=== PATIENT | male | born 1950 | race Caucasian/White ===

== ENCOUNTER 2017-09-15 19:09 | Emergency (ER) | payer MEDICARE, MEDICAID ==
[~2017-09-15] VITALS: Ht 188 cm; Wt 95.0 kg
[~2017-09-15 19:09] MED LIST: ACLI400A2 INH; ALBU8.5H5 INH; ASPI-621 PO; DILT120C9 PO; FAMO-79 PO; FLUT1DIS3 INH; FOLI-17 PO; MAGN400T26 PO; MULT-750 PO; NICO-487 TD; THIA100T6 PO; TRAM-47 PO
[2017-09-15 21:56] VITALS: BP 112/70
== END 2017-09-16 03:41 | disposition home or self-care (01) ==
LOC: ED 20:16
DX: K40.90 Unilateral inguinal hernia, without obstruction or gangrene, not specified as recurrent (principal); F10.220 Alcohol dependence with intoxication, uncomplicated; J44.9 Chronic obstructive pulmonary disease, unspecified; I48.91 Unspecified atrial fibrillation; C34.90 Malignant neoplasm of unspecified part of unspecified bronchus or lung
CPT/HCPCS: 99283

== ENCOUNTER 2019-02-07 12:09 | Inpatient (IN) | payer MEDICARE, MEDICAID ==
[~2019-02-07] VITALS: Ht 177.8 cm; Wt 82.2 kg
[~2019-02-07 12:09] MED LIST changes: -ASPI-621 PO; +ASPI81TA45 PO; -THIA100T6 PO; +THIA100T67 PO
[2019-02-07] MEDS ORDERED: DILTIAZEM 125 MG in SODIUM CHLORIDE 0.9% 100 ML IV SCH (12:39)
[2019-02-07] MEDS ORDERED: AMITRIPTYLINE (12:42)
--- NOTE | 2019-02-07 12:43 | NUR ---
PT BIB [facility] FOR ETOH. [facility] ON RECORD ST CALLED EMS BECAUSE PT WAS STUMBLING AROUND, CONCERNED THAT PT FELL AND HIT HEAD. NO TRAUMA VISIBLE, NO HX BLOOD THINNERS. PT STATES HE DRANK A PINT OF VODKA THIS AM. VSS EXCEPT HR AFIB 130S-150S. PER EMS STAFF HR WAS AFIB 160S-170S ON SCENE. 1 L NS GIVEN AND PIV ESTABLISHED, UNKNOWN HX OF AFIB PER PT. PT DRESSED IN GOWN, COOPERATIVE WITH STAFF BUT LETHARGIC. ROOM AIR. FALL PRECAUTIONS IN PLACE.
[2019-02-07] MEDS ORDERED: DILTIAZEM 5 MG/ML, 5ML ONE (12:49)
[2019-02-07] MEDS ORDERED: THIAMINE 100 MG in SODIUM CHLORIDE 0.9% 50 ML IVPB ONE (13:00)
[2019-02-07] MEDS ORDERED: SODIUM CHLORIDE FLUSH 10ML SYR IVF ONE (13:00)
[2019-02-07] MEDS ORDERED: DILTIAZEM 5 MG/ML, 5ML IV ONE (13:00)
[2019-02-07 13:12] LABS: BASOPHILS # (AUTO) 0.06 x10^3/uL (0-0.1); BASOPHILS % (AUTO) 1 % (0-1); EOSINOPHILS # (AUTO) 0.13 x10^3/uL (0-0.4); EOSINOPHILS % (AUTO) 1 % (1-7); LYMPHOCYTES % (AUTO) 20 % (22-44); MD NO; MEAN CORPUSCULAR HEMOGLOBIN 31.2 pg (27.5-34.5); MEAN CORPUSCULAR HGB CONC 32.9 g/dL (33.2-36.2); MEAN CORPUSCULAR VOLUME 94.9 fL (81-97); MEAN PLATELET VOLUME 7.8 fL (7.4-10.4); MONOCYTES # (AUTO) 0.94 x10^3/uL (0.2-0.8); MONOCYTES % (AUTO) 10 % (2-9); NEUTROPHILS # (AUTO) 6.35 x10^3/uL (1.8-6.8); NEUTROPHILS % (AUTO) 68 % (42-75); PLATELET COUNT 238 x10^3/uL (130-400); RED BLOOD COUNT 4.84 x10^6/uL (4.38-5.82); RED CELL DISTRIBUTION WIDTH 14.7 % (9.4-14.8)
--- NOTE | 2019-02-07 13:13 | NUR ---
CARDIZEM BOLUS COMPLETED, CARDIZEM GTT INFUSING PER MD ORDER. VSS, EXCEPT HR 110S-140S.
--- NOTE | 2019-02-07 13:14 | NUR ---
received report from Emmanuel. pt upright on gurney awake & calm, responds to staff questions, NAD, no needs at this time, call light within reach.
[2019-02-07 13:19] LABS: ALANINE AMINOTRANSFERASE 22 U/L (12-78); ALBUMIN 3.3 g/dL (3.4-5.0); ANION GAP 9 mmol/L (5-15); CALCIUM 7.7 mg/dL (8.5-10.1); CHLORIDE 114 mmol/L (98-107); CREATININE 0.62 mg/dL (0.7-1.3)
[2019-02-07 13:23] LABS: ALKALINE PHOSPHATASE 62 U/L (45-117); BILIRUBIN,TOTAL 0.4 mg/dL (0.2-1.0); TOTAL PROTEIN 6.5 g/dL (6.4-8.2); TROPONIN I < 0.015 ng/mL (0.000-0.045)
[2019-02-07 13:26] LABS: PROTHROMBIN TIME 10.5 Seconds (9.6-11.5)
--- NOTE | 2019-02-07 14:01 | NUR ---
pt laying on gurney with eyes closed, NAD with equal chest rise/fall, no needs at this time, pt remains in safe environment, sitter in view.
--- NOTE | 2019-02-07 14:56 | NUR ---
pt continues laying on gurney with eyes closed, NAD with equal chest rise/fall, no needs at this time, pt remains in safe environment, sitter in view.
[2019-02-07] MEDS ORDERED: SODIUM CHLORIDE FLUSH 10ML SYR IVF PRN (15:00)
--- NOTE | 2019-02-07 15:04 | NUR ---
Manohar toussaint in [facility] - 02/07/19 at 1505 by CHIQUI pt laying on gurney with eyes closed, NAD with equal chest rise/fall, no needs at this time, call light within reach.
--- NOTE | 2019-02-07 15:43 | NUR ---
Pt to be admitted to card-tele, room 504. Report called to Martina.
[2019-02-07] MEDS ORDERED: HEPARIN 5,000 UNITS/ML, 1ML SQ SCH (16:00)
[2019-02-07] MEDS ORDERED: LABETALOL 5MG/ML, 20ML IVPush PRN (16:00)
[2019-02-07] MEDS ORDERED: ONDANSETRON 2MG/ML, 2ML IVPush PRN (16:00)
[2019-02-07 16:43] VITALS: BP 120/81
[2019-02-07] MEDS ORDERED: ALBUTEROL/IPRATROPIUM 2.5MG/0.5MG, 3 ML ONE (17:03)
[2019-02-07] MEDS: ALBUTEROL/IPRATROPIUM 2.5MG/0.5MG, 3 ML NPPB SCH ×2 (17:10→20:53)
[2019-02-07 17:24] LABS: TROPONIN I < 0.015 ng/mL (0.000-0.045)
[2019-02-07] MEDS: DILTIAZEM 125 MG in SODIUM CHLORIDE 0.9% 100 ML IV SCH ×2 (18:00→23:43)
[2019-02-07] MEDS: LORazepam 2 MG/ML, 1ML IVPush PRN (18:16)
[2019-02-07] MEDS: SODIUM CHLORIDE 0.9% 1,000 ML IV SCH (18:25)
[2019-02-07] MEDS ORDERED: MAGNESIUM SULFATE PMX 2GM/50ML 50 ML IV ONE (18:30)
[2019-02-07 19:48] VITALS: BP 122/75
[2019-02-07] MEDS: BUDESONIDE 0.5 MG/2 ML INHA INH SCH (20:53)
[2019-02-07] MEDS: ENOXAPARIN 80 MG/0.8 ML SQ SCH (21:27)
[2019-02-07] MEDS: NICOTINE 21 MG/24 HR PATCH.TD24 TD SCH (21:27)
[2019-02-07 22:53] LABS: TROPONIN I < 0.015 ng/mL (0.000-0.045)
[2019-02-08] MEDS ORDERED: NITROGLYCERIN 0.4 MG/SPRAY SL PRN (02:00)
[2019-02-08] MEDS ORDERED: NITROGLYCERIN 0.4 MG BOTTLE (25 TABS) SL PRN (02:00)
[2019-02-08 02:13] VITALS: BP 106/67
[2019-02-08 05:30] VITALS: BP 122/64
[2019-02-08 05:32] LABS: ALANINE AMINOTRANSFERASE 22 U/L (12-78); ANION GAP 8 mmol/L (5-15); CALCIUM 7.7 mg/dL (8.5-10.1); CHLORIDE 107 mmol/L (98-107); CREATININE 0.58 mg/dL (0.7-1.3)
[2019-02-08 05:34] LABS: MEAN CORPUSCULAR HEMOGLOBIN 32.2 pg (27.5-34.5); MEAN CORPUSCULAR HGB CONC 33.6 g/dL (33.2-36.2); MEAN CORPUSCULAR VOLUME 95.6 fL (81-97); PLATELET COUNT 203 x10^3/uL (130-400); RED BLOOD COUNT 4.14 x10^6/uL (4.38-5.82); RED CELL DISTRIBUTION WIDTH 14.5 % (9.4-14.8)
[2019-02-08 05:41] VITALS: BP 99/62
[2019-02-08 05:43] LABS: ALKALINE PHOSPHATASE 59 U/L (45-117); TOTAL PROTEIN 5.9 g/dL (6.4-8.2)
[2019-02-08 05:46] LABS: THYROID STIMULATING HORMONE < 0.005 mIU/L (0.358-3.740)
[2019-02-08] MEDS: ACETAMINOPHEN 325 MG TABLET PO PRN ×2 (05:54→21:29)
[2019-02-08 05:56] LABS: BASOPHILS # (AUTO) 0.05 x10^3/uL (0-0.1); BASOPHILS % (AUTO) 0 % (0-1); EOSINOPHILS # (AUTO) 0.05 x10^3/uL (0-0.4); EOSINOPHILS % (AUTO) 0 % (1-7); LYMPHOCYTES # (AUTO) 1.29 x10^3/uL (1-3.4); LYMPHOCYTES % (AUTO) 11 % (22-44); MD NO; MONOCYTES # (AUTO) 1.29 x10^3/uL (0.2-0.8); MONOCYTES % (AUTO) 11 % (2-9); NEUTROPHILS # (AUTO) 8.92 x10^3/uL (1.8-6.8); NEUTROPHILS % (AUTO) 77 % (42-75)
[2019-02-08] MEDS: SODIUM CHLORIDE 0.9% 1,000 ML IV SCH ×2 (05:56→16:00)
[2019-02-08 06:50] VITALS: BP 121/68
[2019-02-08] MEDS: BUDESONIDE 0.5 MG/2 ML INHA INH SCH ×2 (06:56→19:00)
[2019-02-08] MEDS: ALBUTEROL/IPRATROPIUM 2.5MG/0.5MG, 3 ML NPPB SCH ×4 (06:56→19:00)
[2019-02-08] MEDS: DILTIAZEM 125 MG in SODIUM CHLORIDE 0.9% 100 ML IV SCH ×3 (07:05→18:03)
[2019-02-08] MEDS ORDERED: DILT120C11 PO (09:47)
[2019-02-08] MEDS ORDERED: TIOT4MIS5 PO (09:47)
[2019-02-08] MEDS ORDERED: BUDE10.2 PO (09:47)
[2019-02-08] MEDS ORDERED: ALBU18HF PO (09:47)
[2019-02-08] MEDS ORDERED: METH750T2 PO (09:47)
[2019-02-08] MEDS ORDERED: PRED20TA PO (09:47)
[2019-02-08] MEDS ORDERED: ASPI-650 PO (09:47)
[2019-02-08] MEDS: THIAMINE 100MG TABLET PO SCH (10:06)
[2019-02-08] MEDS: FOLIC ACID 1 MG TABLET PO SCH (10:06)
[2019-02-08] MEDS: ENOXAPARIN 80 MG/0.8 ML SQ SCH ×2 (10:07→21:17)
[2019-02-08 10:41] LABS: FREE T4 (FREE THYROXINE) 1.2 ng/dL (0.76-1.46)
[2019-02-08 12:55] VITALS: BP 107/61
[2019-02-08] MEDS ORDERED: POTASSIUM CHLORIDE 20 MEQ TAB.ER.PRT PO ONE (16:00)
[2019-02-08] MEDS: METOPROLOL TARTRATE 25 MG TABLET PO SCH (18:01)
[2019-02-08] MEDS: GUAIFENESIN 200 MG TABLET PO SCH ×2 (18:01→21:17)
[2019-02-08 20:52] VITALS: BP 112/68
[2019-02-08] MEDS: DOXYCYCLINE 100MG TABLET PO SCH (21:17)
[2019-02-08] MEDS: NICOTINE 21 MG/24 HR PATCH.TD24 TD SCH (21:17)
[2019-02-09 02:30] VITALS: BP 127/75
[2019-02-09] MEDS: DILTIAZEM 125 MG in SODIUM CHLORIDE 0.9% 100 ML IV SCH (04:18)
[2019-02-09 04:52] LABS: BASOPHILS # (AUTO) 0.02 x10^3/uL (0-0.1); BASOPHILS % (AUTO) 0 % (0-1); EOSINOPHILS # (AUTO) 0.15 x10^3/uL (0-0.4); EOSINOPHILS % (AUTO) 2 % (1-7); LYMPHOCYTES # (AUTO) 1.99 x10^3/uL (1-3.4); LYMPHOCYTES % (AUTO) 23 % (22-44); MD NO; MEAN CORPUSCULAR HEMOGLOBIN 31.9 pg (27.5-34.5); MEAN CORPUSCULAR HGB CONC 33.1 g/dL (33.2-36.2); MEAN CORPUSCULAR VOLUME 96.3 fL (81-97); MEAN PLATELET VOLUME 8.6 fL (7.4-10.4); MONOCYTES # (AUTO) 0.98 x10^3/uL (0.2-0.8); MONOCYTES % (AUTO) 11 % (2-9); NEUTROPHILS # (AUTO) 5.48 x10^3/uL (1.8-6.8); NEUTROPHILS % (AUTO) 64 % (42-75); PLATELET COUNT 194 x10^3/uL (130-400); RED BLOOD COUNT 4.33 x10^6/uL (4.38-5.82); RED CELL DISTRIBUTION WIDTH 14.9 % (9.4-14.8)
[2019-02-09 04:58] LABS: ANION GAP 7 mmol/L (5-15); CALCIUM 8.3 mg/dL (8.5-10.1); CHLORIDE 111 mmol/L (98-107)
[2019-02-09 04:59] LABS: CREATININE 0.52 mg/dL (0.7-1.3)
[2019-02-09] MEDS: METOPROLOL TARTRATE 25 MG TABLET PO SCH ×2 (05:53→17:28)
[2019-02-09] MEDS: GUAIFENESIN 200 MG TABLET PO SCH (05:53)
[2019-02-09 05:54] VITALS: BP 146/85
[2019-02-09 07:01] VITALS: BP 130/77
[2019-02-09] MEDS: ALBUTEROL/IPRATROPIUM 2.5MG/0.5MG, 3 ML NPPB SCH ×4 (07:45→20:00)
[2019-02-09] MEDS: BUDESONIDE 0.5 MG/2 ML INHA INH SCH ×2 (07:45→20:07)
[2019-02-09] MEDS: DOXYCYCLINE 100MG TABLET PO SCH ×2 (09:29→21:33)
[2019-02-09] MEDS: FOLIC ACID 1 MG TABLET PO SCH (09:29)
[2019-02-09] MEDS: THIAMINE 100MG TABLET PO SCH (09:30)
[2019-02-09] MEDS: ENOXAPARIN 80 MG/0.8 ML SQ SCH ×2 (09:30→21:33)
[2019-02-09] MEDS ORDERED: NEUTRA PHOS K 250 MG TABLET PO SCH (10:30)
[2019-02-09] MEDS: MAGNESIUM OXIDE 400 MG TABLET PO SCH (11:13)
[2019-02-09] MEDS: DILTIAZEM 60 MG TABLET PO SCH ×3 (11:13→21:33)
[2019-02-09] MEDS: GUAIFENESIN ER 600 MG TABLET PO SCH ×2 (11:19→21:32)
[2019-02-09 13:02] VITALS: BP 107/66
[2019-02-09 19:00] VITALS: BP 126/75
[2019-02-09] MEDS: NICOTINE 21 MG/24 HR PATCH.TD24 TD SCH (21:34)
[2019-02-10 00:34] VITALS: BP 107/62
[2019-02-10 04:59] LABS: MEAN CORPUSCULAR HEMOGLOBIN 32.1 pg (27.5-34.5); MEAN CORPUSCULAR HGB CONC 32.9 g/dL (33.2-36.2); MEAN CORPUSCULAR VOLUME 97.5 fL (81-97); MEAN PLATELET VOLUME 8.6 fL (7.4-10.4); PLATELET COUNT 199 x10^3/uL (130-400); RED BLOOD COUNT 4.59 x10^6/uL (4.38-5.82); RED CELL DISTRIBUTION WIDTH 14.6 % (9.4-14.8)
[2019-02-10 05:05] LABS: ANION GAP 8 mmol/L (5-15); CALCIUM 8.6 mg/dL (8.5-10.1); CHLORIDE 108 mmol/L (98-107); CREATININE 0.46 mg/dL (0.7-1.3)
[2019-02-10 05:42] LABS: BASOPHILS # (AUTO) 0.01 x10^3/uL (0-0.1); BASOPHILS % (AUTO) 0 % (0-1); EOSINOPHILS % (AUTO) 0 % (1-7); LYMPHOCYTES # (AUTO) 0.75 x10^3/uL (1-3.4); LYMPHOCYTES % (AUTO) 7 % (22-44); MD SCAN; MONOCYTES # (AUTO) 0.36 x10^3/uL (0.2-0.8); MONOCYTES % (AUTO) 3 % (2-9); NEUTROPHILS # (AUTO) 9.76 x10^3/uL (1.8-6.8); NEUTROPHILS % (AUTO) 90 % (42-75)
[2019-02-10 06:12] VITALS: BP 132/75
[2019-02-10] MEDS: DILTIAZEM 60 MG TABLET PO SCH ×4 (06:12→20:04)
[2019-02-10] MEDS: METOPROLOL TARTRATE 25 MG TABLET PO SCH ×2 (06:13→20:03)
[2019-02-10] MEDS: ALBUTEROL/IPRATROPIUM 2.5MG/0.5MG, 3 ML NPPB SCH ×4 (07:00→18:24)
[2019-02-10 08:35] VITALS: BP 113/70
[2019-02-10] MEDS: FOLIC ACID 1 MG TABLET PO SCH (08:41)
[2019-02-10] MEDS: MAGNESIUM OXIDE 400 MG TABLET PO SCH (08:41)
[2019-02-10] MEDS: GUAIFENESIN ER 600 MG TABLET PO SCH ×2 (08:41→20:03)
[2019-02-10] MEDS: THIAMINE 100MG TABLET PO SCH (08:41)
[2019-02-10] MEDS: ENOXAPARIN 80 MG/0.8 ML SQ SCH ×2 (08:41→20:05)
[2019-02-10] MEDS: DOXYCYCLINE 100MG TABLET PO SCH ×2 (08:41→20:04)
[2019-02-10] MEDS: LORazepam 2 MG/ML, 1ML IVPush PRN ×2 (08:58→20:10)
[2019-02-10] MEDS: BUDESONIDE 0.5 MG/2 ML INHA INH SCH ×2 (09:00→18:24)
[2019-02-10] MEDS: methylPREDNISolone SOD SUCC 125 MG/2 ML IVPush SCH ×2 (12:40→20:03)
[2019-02-10 16:03] VITALS: BP 130/82
[2019-02-10] MEDS: PANTOPRAZOLE 20MG TABLET PO SCH (17:34)
[2019-02-10 18:43] VITALS: BP 120/79
[2019-02-10] MEDS: NICOTINE 21 MG/24 HR PATCH.TD24 TD SCH (20:05)
[2019-02-11 00:21] VITALS: BP 123/75
[2019-02-11] MEDS: methylPREDNISolone SOD SUCC 125 MG/2 ML IVPush SCH (05:27)
[2019-02-11] MEDS: METOPROLOL TARTRATE 25 MG TABLET PO SCH ×2 (05:28→17:33)
[2019-02-11] MEDS: DILTIAZEM 60 MG TABLET PO SCH ×4 (05:28→20:48)
[2019-02-11] MEDS: PANTOPRAZOLE 20MG TABLET PO SCH (05:28)
[2019-02-11 06:29] VITALS: BP 120/72
[2019-02-11] MEDS: ALBUTEROL/IPRATROPIUM 2.5MG/0.5MG, 3 ML NPPB SCH ×4 (06:56→19:59)
[2019-02-11] MEDS: DOXYCYCLINE 100MG TABLET PO SCH ×2 (08:18→20:48)
[2019-02-11] MEDS: FOLIC ACID 1 MG TABLET PO SCH (08:18)
[2019-02-11] MEDS: MAGNESIUM OXIDE 400 MG TABLET PO SCH (08:18)
[2019-02-11] MEDS: GUAIFENESIN ER 600 MG TABLET PO SCH ×2 (08:18→20:48)
[2019-02-11] MEDS: THIAMINE 100MG TABLET PO SCH (08:18)
[2019-02-11] MEDS: ENOXAPARIN 80 MG/0.8 ML SQ SCH ×2 (08:19→20:49)
[2019-02-11] MEDS: BUDESONIDE 0.5 MG/2 ML INHA INH SCH ×2 (09:00→19:59)
[2019-02-11 11:09] VITALS: BP 125/78
[2019-02-11 13:06] VITALS: BP 117/69
[2019-02-11] MEDS ORDERED: AMIT10TA PO (14:03)
[2019-02-11] MEDS: GABAPENTIN 100 MG CAPSULE PO PRN ×2 (14:19→22:32)
[2019-02-11 17:29] VITALS: BP 122/65
[2019-02-11 19:24] VITALS: BP 111/72
[2019-02-11] MEDS: ACETAMINOPHEN 325 MG TABLET PO PRN (20:49)
[2019-02-11] MEDS: NICOTINE 21 MG/24 HR PATCH.TD24 TD SCH (20:56)
[2019-02-11] MEDS: LORazepam 2 MG/ML, 1ML IVPush PRN (23:49)
[2019-02-12 02:30] VITALS: BP 130/72
[2019-02-12] MEDS: ACETAMINOPHEN 325 MG TABLET PO PRN (06:00)
[2019-02-12] MEDS: METOPROLOL TARTRATE 25 MG TABLET PO SCH (06:01)
[2019-02-12] MEDS: DILTIAZEM 60 MG TABLET PO SCH (06:02)
[2019-02-12] MEDS: PANTOPRAZOLE 20MG TABLET PO SCH (06:02)
[2019-02-12] MEDS: BUDESONIDE 0.5 MG/2 ML INHA INH SCH (07:25)
[2019-02-12] MEDS: ALBUTEROL/IPRATROPIUM 2.5MG/0.5MG, 3 ML NPPB SCH (07:25)
[2019-02-12] MEDS: DOXYCYCLINE 100MG TABLET PO SCH (07:55)
[2019-02-12] MEDS: FOLIC ACID 1 MG TABLET PO SCH (07:55)
[2019-02-12] MEDS: GUAIFENESIN ER 600 MG TABLET PO SCH (07:55)
[2019-02-12] MEDS: THIAMINE 100MG TABLET PO SCH (07:55)
[2019-02-12] MEDS: MAGNESIUM OXIDE 400 MG TABLET PO SCH (07:55)
[2019-02-12 07:57] VITALS: BP 122/75
[2019-02-12] MEDS ORDERED: PHOS250T3 PO (09:00)
[2019-02-12] MEDS ORDERED: MAGN400T50 PO (09:00)
[2019-02-12] MEDS ORDERED: METH4TAB2 PO (09:00)
[2019-02-12] MEDS ORDERED: ALBU18HF PO (09:00)
[2019-02-12] MEDS ORDERED: THIA100T67 PO (09:00)
[2019-02-12] MEDS ORDERED: DILT120C11 PO (09:00)
[2019-02-12] MEDS ORDERED: FOLI-17 PO (09:00)
[2019-02-12] MEDS ORDERED: BUDE10.2 PO (09:00)
[2019-02-12] MEDS ORDERED: METO25TA35 PO (09:00)
[2019-02-12] MEDS ORDERED: TIOT4MIS5 PO (09:00)
[2019-02-12] MEDS ORDERED: NICO-487 TD (09:04)
[2019-02-12] MEDS ORDERED: NICO-486 TD (09:04)
[2019-02-12] MEDS ORDERED: NICO-485 TD (09:04)
[2019-02-12] MEDS: ENOXAPARIN 80 MG/0.8 ML SQ SCH (09:30)
== END 2019-02-12 11:17 | disposition home or self-care (01) | DRG 308 ==
LOC: ED 14:31 → EDIP 14:32 → ED 15:25 → 5SO 15:57
PROVIDERS: ADMIT Hospitalist; ATTEND Hospitalist
DX: I48.2 Chronic atrial fibrillation (principal); I50.31 Acute diastolic (congestive) heart failure; J44.1 Chronic obstructive pulmonary disease with (acute) exacerbation; S22.42XA Multiple fractures of ribs, left side, initial encounter for closed fracture; E44.0 Moderate protein-calorie malnutrition; D68.59 Other primary thrombophilia; F10.220 Alcohol dependence with intoxication, uncomplicated; F17.200 Nicotine dependence, unspecified, uncomplicated; Z66 Do not resuscitate; D64.9 Anemia, unspecified; D72.829 Elevated white blood cell count, unspecified; E66.3 Overweight; E83.39 Other disorders of phosphorus metabolism; E83.42 Hypomagnesemia; E87.6 Hypokalemia; F41.9 Anxiety disorder, unspecified; G89.29 Other chronic pain; M54.9 Dorsalgia, unspecified; I44.4 Left anterior fascicular block; Z91.19 Patient's noncompliance with other medical treatment and regimen; Z85.118 Personal history of other malignant neoplasm of bronchus and lung; Z91.81 History of falling; Z68.26 Body mass index [BMI] 26.0-26.9, adult
CPT/HCPCS: 36415; 71045; 80048; 80053; 80307; 83735; 83880; 84100; 84439; 84443; 84481; 84484; 85025; 85610; 85730; 93005; 93306; 94640; 96374; 96375; G0378; J1650; J3411; J7620; J7626; J2060; J2930; J3475; J7030; J7512

== ENCOUNTER 2019-07-09 12:08 | Inpatient (IN) | payer MEDICARE, MEDICAID ==
[~2019-07-09] VITALS: Ht 182.9 cm; Wt 83.2 kg
[~2019-07-09 12:08] MED LIST changes: -ACLI400A2 INH; +ACLI400A3 INH; +ALBU18HF PO; +AMIT10TA PO; +AMITRIPTYLINE; +ASPI-650 PO; +BUDE10.2 PO; +DILT120C11 PO; +DILT120C48 PO; -DILT120C9 PO; +MAGN400T50 PO; +METH4TAB2 PO; +METH750T2 PO; +METO25TA35 PO; +NICO-485 TD; +NICO-486 TD; +PHOS250T3 PO; +PRED20TA PO; +TIOT4MIS5 PO
--- NOTE | 2019-07-09 12:45 | NUR ---
BIB EMS, DR ALTAMIRANO REC'D RPT FROM EMS. PT CARE ASSUMED BY THIS RN. PT WITH OVERWHELMING ODOR OF URINE, CLOTHES APPEAR SOAKED IN URINE ANDPT ONLY HAS A T-SHIRT AND UNDERSHORTS ON. CLOTHES REMOVED AND SKIN CLEANED HOSPITAL GOWN PLACED, PT ROSARIO WITH PURPOSE BUT DFOES NOT FOLLOW COMMANDS +ETOH ODOR. RECTAL TEMP 95.0, SLY BLANKET WARMING INITIATED AND WARM BLANKETS. ALL MONITORS PLACED, VSS. DR ALTAMIRANO UPDATED REGARDING ASSESSMENT.
[2019-07-09] MEDS ORDERED: SODIUM CHLORIDE 0.9% 1,000 ML IV ONE (12:54)
[2019-07-09 13:16] LABS: BASOPHILS # (AUTO) 0.04 x10^3/uL (0-0.1); BASOPHILS % (AUTO) 1 % (0-1); EOSINOPHILS # (AUTO) 0.26 x10^3/uL (0-0.4); EOSINOPHILS % (AUTO) 4 % (1-7); LYMPHOCYTES # (AUTO) 2.41 x10^3/uL (1-3.4); LYMPHOCYTES % (AUTO) 41 % (22-44); MD NO; MEAN CORPUSCULAR HEMOGLOBIN 31.9 pg (27.5-34.5); MEAN CORPUSCULAR HGB CONC 32.6 g/dL (33.2-36.2); MEAN CORPUSCULAR VOLUME 97.8 fL (81-97); MEAN PLATELET VOLUME 7.8 fL (7.4-10.4); MONOCYTES # (AUTO) 0.48 x10^3/uL (0.2-0.8); MONOCYTES % (AUTO) 8 % (2-9); NEUTROPHILS # (AUTO) 2.69 x10^3/uL (1.8-6.8); NEUTROPHILS % (AUTO) 46 % (42-75); PLATELET COUNT 238 x10^3/uL (130-400); RED BLOOD COUNT 5.66 x10^6/uL (4.38-5.82); RED CELL DISTRIBUTION WIDTH 15.4 % (9.4-14.8)
[2019-07-09 13:24] LABS: ALANINE AMINOTRANSFERASE 47 U/L (12-78); ALBUMIN 3.8 g/dL (3.4-5.0); ANION GAP 5 mmol/L (5-15); CALCIUM 8.7 mg/dL (8.5-10.1); CHLORIDE 114 mmol/L (98-107)
[2019-07-09 13:35] LABS: ALKALINE PHOSPHATASE 62 U/L (45-117); BILIRUBIN,TOTAL 0.2 mg/dL (0.2-1.0); CREATINE KINASE, TOTAL 58 U/L (39-308); TOTAL PROTEIN 8.6 g/dL (6.4-8.2)
--- NOTE | 2019-07-09 14:27 | NUR ---
rec report from maria de jesus salas
[2019-07-09] MEDS ORDERED: THIAMINE 200 MG in SODIUM CHLORIDE 0.9% 50 ML IV ONE (15:00)
[2019-07-09] MEDS ORDERED: DEXTROSE 5% 1,000 ML IV SCH (15:00)
[2019-07-09] MEDS: SODIUM CHLORIDE 0.9% 1,000 ML IV SCH (16:02)
[2019-07-09] MEDS ORDERED: DOCUSATE 100 MG CAPSULE PO PRN (16:30)
[2019-07-09] MEDS ORDERED: POLYETHYLENE GLYCOL 17 GM PACKET PO PRN (16:30)
--- NOTE | 2019-07-09 16:31 | NUR ---
report called to the floor
[2019-07-09 16:43] LABS: TROPONIN I < 0.015 ng/mL (0.000-0.045)
[2019-07-09 18:26] VITALS: BP 122/74
[2019-07-09] MEDS: NICOTINE 14MG/24 HR PATCH.TD24 TD SCH (18:45)
[2019-07-09 19:08] LABS: TROPONIN I < 0.015 ng/mL (0.000-0.045)
[2019-07-09 19:18] VITALS: BP 110/74
[2019-07-09] MEDS: POTASSIUM CHLORIDE 20 MEQ, MAGNESIUM SULFATE 1 GM, FOLIC ACID 1 MG, THIAMINE 200 MG, MV... IV SCH (19:38)
[2019-07-09 19:46] LABS: MICROSCOPIC NOT IND
[2019-07-09 19:48] LABS: CULTURE INDICATED? NO
[2019-07-09 19:57] LABS: AMPHETAMINE SCREEN, URINE Negative (Negative); BARBITURATE SCREEN, URINE Negative (Negative); BENZODIAZEPINE SCREEN, URINE Negative (Negative); CANNABINOID SCREEN, URINE Negative (Negative); COCAINE SCREEN, URINE Negative (Negative); METHADONE SCREEN, URINE Negative (Negative); OPIATE SCREEN, URINE Negative (Negative)
[2019-07-10] MEDS: ACETAMINOPHEN 325 MG TABLET PO PRN ×4 (00:50→21:00)
[2019-07-10] MEDS: LORazepam 2 MG/ML, 1ML IVPush PRN ×2 (00:51→05:04)
[2019-07-10 01:25] VITALS: BP 126/82
[2019-07-10 05:47] LABS: ALBUMIN 2.9 g/dL (3.4-5.0); ANION GAP 4 mmol/L (5-15); CALCIUM 7.7 mg/dL (8.5-10.1); CHLORIDE 108 mmol/L (98-107)
[2019-07-10 05:51] LABS: ALANINE AMINOTRANSFERASE 33 U/L (12-78); ALKALINE PHOSPHATASE 48 U/L (45-117); BILIRUBIN,TOTAL 0.7 mg/dL (0.2-1.0); CREATININE 0.61 mg/dL (0.7-1.3); TOTAL PROTEIN 6.4 g/dL (6.4-8.2)
[2019-07-10 06:14] LABS: BASOPHILS # (AUTO) 0.01 x10^3/uL (0-0.1); BASOPHILS % (AUTO) 0 % (0-1); EOSINOPHILS % (AUTO) 3 % (1-7); LYMPHOCYTES # (AUTO) 2.82 x10^3/uL (1-3.4); LYMPHOCYTES % (AUTO) 27 % (22-44); MD NO; MEAN CORPUSCULAR HEMOGLOBIN 31.8 pg (27.5-34.5); MEAN CORPUSCULAR HGB CONC 33.3 g/dL (33.2-36.2); MEAN CORPUSCULAR VOLUME 95.3 fL (81-97); MONOCYTES # (AUTO) 0.88 x10^3/uL (0.2-0.8); MONOCYTES % (AUTO) 9 % (2-9); NEUTROPHILS % (AUTO) 61 % (42-75); PLATELET COUNT 212 x10^3/uL (130-400); RED BLOOD COUNT 4.55 x10^6/uL (4.38-5.82)
[2019-07-10 07:02] VITALS: BP 145/91
[2019-07-10] MEDS: SODIUM CHLORIDE 0.9% 1,000 ML IV SCH (09:46)
[2019-07-10] MEDS ORDERED: LORazepam 2 MG/ML, 1ML IV PRN ×5 (10:30)
[2019-07-10] MEDS ORDERED: LORazepam 1MG TABLET PO PRN ×4 (10:30)
[2019-07-10] MEDS ORDERED: LORazepam 0.5MG TABLET PO PRN (10:30)
[2019-07-10 14:30] VITALS: BP 117/82
[2019-07-10] MEDS: NICOTINE 14MG/24 HR PATCH.TD24 TD SCH (16:45)
[2019-07-10] MEDS: POTASSIUM CHLORIDE 20 MEQ, MAGNESIUM SULFATE 1 GM, FOLIC ACID 1 MG, THIAMINE 200 MG, MV... IV SCH (18:20)
[2019-07-10 20:07] VITALS: BP 135/87
[2019-07-11 00:58] VITALS: BP 136/84
[2019-07-11 05:05] LABS: BASOPHILS # (AUTO) 0.02 x10^3/uL (0-0.1); BASOPHILS % (AUTO) 0 % (0-1); EOSINOPHILS # (AUTO) 0.37 x10^3/uL (0-0.4); EOSINOPHILS % (AUTO) 5 % (1-7); LYMPHOCYTES # (AUTO) 1.97 x10^3/uL (1-3.4); LYMPHOCYTES % (AUTO) 26 % (22-44); MD NO; MEAN CORPUSCULAR HEMOGLOBIN 31.9 pg (27.5-34.5); MEAN CORPUSCULAR HGB CONC 33.3 g/dL (33.2-36.2); MEAN CORPUSCULAR VOLUME 95.9 fL (81-97); MEAN PLATELET VOLUME 7.9 fL (7.4-10.4); MONOCYTES # (AUTO) 0.88 x10^3/uL (0.2-0.8); MONOCYTES % (AUTO) 12 % (2-9); NEUTROPHILS # (AUTO) 4.39 x10^3/uL (1.8-6.8); NEUTROPHILS % (AUTO) 58 % (42-75); PLATELET COUNT 195 x10^3/uL (130-400); RED BLOOD COUNT 4.56 x10^6/uL (4.38-5.82); RED CELL DISTRIBUTION WIDTH 14.6 % (9.4-14.8)
[2019-07-11 05:07] LABS: ANION GAP 7 mmol/L (5-15); CALCIUM 8.1 mg/dL (8.5-10.1); CHLORIDE 110 mmol/L (98-107); CREATININE 0.65 mg/dL (0.7-1.3)
[2019-07-11 05:17] LABS: FREE T4 (FREE THYROXINE) 0.88 ng/dL (0.76-1.46)
[2019-07-11 08:14] VITALS: BP 118/78
== END 2019-07-11 10:00 | disposition home or self-care (01) | DRG 896 ==
LOC: ED 15:53 → EDIP 15:58 → 5SO 17:35 → DCLOUNGE 07-11 09:43
PROVIDERS: ADMIT Internal Medicine; ATTEND Internal Medicine
DX: F10.229 Alcohol dependence with intoxication, unspecified (principal); G92 Toxic encephalopathy; R64 Cachexia; E87.0 Hyperosmolality and hypernatremia; E05.90 Thyrotoxicosis, unspecified without thyrotoxic crisis or storm; I48.0 Paroxysmal atrial fibrillation; J44.9 Chronic obstructive pulmonary disease, unspecified; R62.7 Adult failure to thrive; Z72.0 Tobacco use; Z85.118 Personal history of other malignant neoplasm of bronchus and lung; Z91.19 Patient's noncompliance with other medical treatment and regimen; R68.0 Hypothermia, not associated with low environmental temperature; Z79.82 Long term (current) use of aspirin; Z68.24 Body mass index [BMI] 24.0-24.9, adult
CPT/HCPCS: 36415; 70450; 71045; 80048; 80053; 80307; 81003; 82140; 82550; 83735; 84100; 84145; 84436; 84439; 84443; 84484; 85025; 93005; 99285; G0378; J3411; J3475; J3480; J7070; J2060; J7030

== ENCOUNTER 2019-07-11 19:56 | Emergency (ER) | payer MEDICARE, MEDICAID ==
[~2019-07-11] VITALS: Ht 172.7 cm; Wt 79.5 kg
[2019-07-11 20:26] LABS: BASOPHILS # (AUTO) 0.02 x10^3/uL (0-0.1); BASOPHILS % (AUTO) 0 % (0-1); EOSINOPHILS # (AUTO) 0.37 x10^3/uL (0-0.4); EOSINOPHILS % (AUTO) 5 % (1-7); LYMPHOCYTES % (AUTO) 35 % (22-44); MD NO; MEAN CORPUSCULAR HEMOGLOBIN 32.3 pg (27.5-34.5); MEAN CORPUSCULAR HGB CONC 33.2 g/dL (33.2-36.2); MEAN CORPUSCULAR VOLUME 97.1 fL (81-97); MEAN PLATELET VOLUME 7.7 fL (7.4-10.4); MONOCYTES # (AUTO) 0.65 x10^3/uL (0.2-0.8); MONOCYTES % (AUTO) 9 % (2-9); NEUTROPHILS # (AUTO) 3.66 x10^3/uL (1.8-6.8); NEUTROPHILS % (AUTO) 51 % (42-75); PLATELET COUNT 221 x10^3/uL (130-400); RED BLOOD COUNT 5.08 x10^6/uL (4.38-5.82); RED CELL DISTRIBUTION WIDTH 15.2 % (9.4-14.8)
--- NOTE | 2019-07-11 20:26 | NUR ---
BIB [facility] FOR ETOH. PT OPENS EYES, NO VERBAL RESPONSE. WAS SEEN HERE EARLIER TODAY. FRIEND CALLED [facility]. EMS STATES O2 WAS 80 RA BUT PT IS 93 RA HERE. PT ATTACHED TO ALL MONITORS. AXILLARY TEMP LOW, WET CLOTHES REMOVED AND WARMING MEASURES IN PLACE. CALL LIGHT WITHIN REACH. BED RAILS UPX2. URINAL AT BEDSIDE.
[2019-07-11 20:34] LABS: ALBUMIN 3.2 g/dL (3.4-5.0); ANION GAP 6 mmol/L (5-15); CALCIUM 8.2 mg/dL (8.5-10.1); CHLORIDE 116 mmol/L (98-107); SALICYLATE LEVEL 2.7 mg/dL (2.8-20.0)
[2019-07-11 22:27] VITALS: BP 105/67
--- NOTE | 2019-07-11 22:54 | NUR ---
pt asked for food. pt provided with a sandwich and water.
--- NOTE | 2019-07-12 02:09 | NUR ---
pt refusing to allow me to retake his temperature. pt states he wants to leave and doesnt know why he is here. pt refusing discharge paperwork. pt provided a new set of clothing becuase the ones he came in were urine soaked. pt provided a taxi cab voucher to the location of his choosing. pt ambulatory to the discharge desk with shuffled gait.
== END 2019-07-12 01:54 | disposition home or self-care (01) ==
LOC: ED 20:23
DX: G92 Toxic encephalopathy (principal); T68.XXXA Hypothermia, initial encounter; F10.20 Alcohol dependence, uncomplicated; Z72.9 Problem related to lifestyle, unspecified; I48.91 Unspecified atrial fibrillation; J44.9 Chronic obstructive pulmonary disease, unspecified; J45.909 Unspecified asthma, uncomplicated; F17.200 Nicotine dependence, unspecified, uncomplicated; Z85.118 Personal history of other malignant neoplasm of bronchus and lung
CPT/HCPCS: 36415; 80048; 80307; 82040; 82962; 85025; 99283

== ENCOUNTER 2019-07-12 14:09 | Emergency (ER) | payer MEDICARE, MEDICAID ==
[~2019-07-12] VITALS: Ht 172.7 cm; Wt 75.0 kg
--- NOTE | 2019-07-12 14:50 | NUR ---
AFTER CLARIFICATION WITH PROVIDER-PLAN TO CHECK ETOH LEVEL (SERUM) AND ALLOW PATIENT TO MTF. (CADE CHANGED TO 5) PLACED ON NIBP/POX. SIDE RAILS UP. PROVIDED WITH WARM BLANKET
--- NOTE | 2019-07-12 16:17 | NUR ---
ASSUMED CARE, RECEIVING REPORT FROM OSMAN. BREATHING EVEN AND UNLABORED, PT SLEEPING
--- NOTE | 2019-07-12 17:00 | NUR ---
CONTINUES TO SLEEP
[2019-07-12 18:00] VITALS: BP 116/78
--- NOTE | 2019-07-12 18:01 | NUR ---
PROVIDED DINNER TRAY
--- NOTE | 2019-07-12 18:59 | NUR ---
REPORT TO ROEL SUTTON
== END 2019-07-12 20:05 | disposition home or self-care (01) ==
LOC: ED 18:12
DX: F10.221 Alcohol dependence with intoxication delirium (principal); G92 Toxic encephalopathy; Z72.9 Problem related to lifestyle, unspecified; Y90.9 Presence of alcohol in blood, level not specified; I48.91 Unspecified atrial fibrillation; J44.9 Chronic obstructive pulmonary disease, unspecified; F17.200 Nicotine dependence, unspecified, uncomplicated; Z85.118 Personal history of other malignant neoplasm of bronchus and lung
CPT/HCPCS: 36415; 80307; 93005; 99284

== ENCOUNTER 2019-07-15 18:54 | Emergency (ER) | payer MEDICARE, MEDICAID ==
[~2019-07-15] VITALS: Ht 177.8 cm; Wt 80.0 kg
--- NOTE | 2019-07-15 19:06 | NUR ---
ASSESSMENT MADE. CHART UP FOR MD TO SEE. [facility]. DENIES TRAUMA / FALL.
--- NOTE | 2019-07-15 21:12 | NUR ---
patient sleeping. respiration unlabored. will continue to monitor.
--- NOTE | 2019-07-15 22:27 | NUR ---
no changes. patient sleeping, respiration unlabored. VSS
--- NOTE | 2019-07-16 01:17 | NUR ---
no changes. patient sleeping. VSS
--- NOTE | 2019-07-16 03:35 | NUR ---
patient been yelling states that he wanted to go home. ambulate with minimal assistance. alert and oriented. pants, shirt and cab voucher provided. wheeled to discharge area.
[2019-07-16 04:09] VITALS: BP 121/67
== END 2019-07-16 04:11 | disposition home or self-care (01) ==
LOC: ED 21:19
DX: F10.129 Alcohol abuse with intoxication, unspecified (principal); Z72.9 Problem related to lifestyle, unspecified; I48.91 Unspecified atrial fibrillation; J44.9 Chronic obstructive pulmonary disease, unspecified; Z85.118 Personal history of other malignant neoplasm of bronchus and lung; Y90.9 Presence of alcohol in blood, level not specified
CPT/HCPCS: 99283

== ENCOUNTER 2019-08-18 21:58 | Emergency (ER) | payer MEDICARE, MEDICAID ==
[~2019-08-18] VITALS: Ht 177.8 cm; Wt 80.0 kg
--- NOTE | 2019-08-19 04:06 | NUR ---
PT UP AND AMBULATING WITH HIS WALKER STATING THAT HE WANTS TO GO HOME, ADDRESS GIVEN [address] [place] [address], CAB VOUCHER GIVEN FOR SAFE DISCHARGE. PT STATES THAT HE IS SORRY THAT HE BECAME INTOXICATED AND ENDED UP IN THE ER.
[2019-08-19 04:09] VITALS: BP 148/80
== END 2019-08-19 04:11 | disposition home or self-care (01) ==
LOC: ED 22:20
DX: F10.229 Alcohol dependence with intoxication, unspecified (principal); J44.9 Chronic obstructive pulmonary disease, unspecified; I48.91 Unspecified atrial fibrillation
CPT/HCPCS: 70450; 72125; 99283; 99284

== ENCOUNTER 2019-08-19 06:11 | Emergency (ER) | payer MEDICARE, MEDICAID ==
[~2019-08-19] VITALS: Ht 175.3 cm; Wt 80.0 kg
[2019-08-19 06:12] VITALS: BP 138/91
--- NOTE | 2019-08-19 06:25 | NUR ---
69Y M BIB EMS FOUND AT BUS STATION AFTER [facility]. PT DENIES LOC, PT WAS SEEN HERE PREVIOUSLY FOR ETOH INTOX. PT CONNECTED TO MONITORS, VSS. NO FURTHER NEEDS EXPRESSED AT THIS TIME.
--- NOTE | 2019-08-19 06:55 | NUR ---
Received bedside report from HERMAN Knox. All questions answered. Assuming care of pt at this time. Pt resting on gurney connected to continous pulse ox monitor and on oxygen via NC. Bedrails up x 2 and call light within reach. No needs expressed at this time. No acute distress noted at this time.
--- NOTE | 2019-08-19 07:27 | NUR ---
Pt refusing to wear oxygen or pulse ox monitor. Pt continues to remove devices when assisted with replacing them. Pt has unlabored respirations with even chest rise and fall. Pt states, "are you going to get me a bottle of vodka?". Pt MTF at this time.
--- NOTE | 2019-08-19 07:46 | NUR ---
Provided pt urinal and water per request. Pt states he is unable to sit up on edge of bed. Ordered pt food tray from diet office. Bedrails up x 2. Call light within reach. Pt using call light appropriately. NADN. No needs expressed. Pt remains MTF.
--- NOTE | 2019-08-19 08:55 | NUR ---
LATE NOTE ENTRY FOR 0845: Pt provided meal tray.
--- NOTE | 2019-08-19 09:01 | NUR ---
Pt stating, "I can't sit up, just give me an hour." EDPA aware.
--- NOTE | 2019-08-19 09:04 | NUR ---
Lights turned on in room. Pt states, "It hasn't been an hour. What do you want me to do." Moved pt's food tray closer. Instructed pt that he will need to try getting up soon. Pt states, "Ok.".
--- NOTE | 2019-08-19 09:28 | NUR ---
Pt ambulates with steady gait and balance with personal walker and left with all personal belongings. Pt refusing to take d/c paperwork, pt states, "I don't want it." Pt states, "I need a cab....I have money...several hotels wouldn't take me and I have money...". Patient given discharge instructions and they have confirmed that they understand the instructions.
== END 2019-08-19 09:31 | disposition home or self-care (01) ==
LOC: ED 06:19
DX: F10.120 Alcohol abuse with intoxication, uncomplicated (principal); R51 Headache; M54.2 Cervicalgia; I48.91 Unspecified atrial fibrillation; J44.9 Chronic obstructive pulmonary disease, unspecified; F17.200 Nicotine dependence, unspecified, uncomplicated; Z86.19 Personal history of other infectious and parasitic diseases; W01.0XXA Fall on same level from slipping, tripping and stumbling without subsequent striking against object, initial encounter; Y93.89 Activity, other specified; Y92.9 Unspecified place or not applicable; Y99.8 Other external cause status
CPT/HCPCS: 70450; 72125; 99284

== ENCOUNTER 2019-09-20 12:17 | Emergency (ER) | payer MEDICAID, MEDICARE ==
[~2019-09-20] VITALS: Ht 172.7 cm; Wt 85.0 kg
--- NOTE | 2019-09-20 12:49 | NUR ---
REPORT FROM YOJANA SUTTON. PT RESTING IN BED CALL PALACIO IN REACH ASKING FOR FOOD. AWAITING MD. PRAJAPATI.
--- NOTE | 2019-09-20 13:25 | NUR ---
PT APPEARS TO BE SLEEPING. SIDE RAILS X2. VSS.
--- NOTE | 2019-09-20 15:01 | NUR ---
PT APPEARS TO BE SLEEPING VSS. NAD.
[2019-09-20 15:02] VITALS: BP 93/54
[2019-09-20] MEDS ORDERED: NEOSPORIN OINT. PKT 1 PACKET ONE (16:51)
== END 2019-09-20 16:23 | disposition left against medical advice (07) ==
LOC: ED 12:39
DX: F10.220 Alcohol dependence with intoxication, uncomplicated (principal); Y90.9 Presence of alcohol in blood, level not specified; I48.91 Unspecified atrial fibrillation; J44.9 Chronic obstructive pulmonary disease, unspecified
CPT/HCPCS: 99283

== ENCOUNTER 2019-09-24 02:27 | Emergency (ER) | payer MEDICARE ==
[~2019-09-24] VITALS: Ht 177.8 cm; Wt 77.0 kg
--- NOTE | 2019-09-24 02:47 | NUR ---
THIS IS A 69Y M BIB EMS FROM [facility] FOR ETOH AND INABILITY TO STAND. PT WAS AT [facility] AND FELL WHILE GETTING IN AND OUT OF HIS WALKER REPEATEDLY. PT ARRIVED AO X3. PT RESTING ON GURNEY SHOUTING AT NURSING STAFF THAT THEY ARE ALL GORGEOUS AND WONT WE TAKE A MIN TO LOVE HIM. PT EDUCATED ON APPROPRIATE BEHAVIOR. PT CONNECTED TO MONITORING ASTON PRAJAPATI
--- NOTE | 2019-09-24 02:49 | NUR ---
PT CONTINUES TO SHOUT AT STAFF DEMANDING FOOD, PT INFORMED THAT WE DO NOT SHOUT AT STAFF MEMBERS.
[2019-09-24 03:37] LABS: BASOPHILS # (AUTO) 0.02 x10^3/uL (0-0.1); BASOPHILS % (AUTO) 0 % (0-1); EOSINOPHILS % (AUTO) 0 % (1-7); LYMPHOCYTES # (AUTO) 1.57 x10^3/uL (1-3.4); LYMPHOCYTES % (AUTO) 17 % (22-44); MD NO; MEAN CORPUSCULAR HEMOGLOBIN 31.8 pg (27.5-34.5); MEAN CORPUSCULAR HGB CONC 33.4 g/dL (33.2-36.2); MEAN CORPUSCULAR VOLUME 95.3 fL (81-97); MEAN PLATELET VOLUME 8.4 fL (7.4-10.4); MONOCYTES # (AUTO) 0.98 x10^3/uL (0.2-0.8); MONOCYTES % (AUTO) 11 % (2-9); NEUTROPHILS # (AUTO) 6.58 x10^3/uL (1.8-6.8); NEUTROPHILS % (AUTO) 72 % (42-75); PLATELET COUNT 123 x10^3/uL (130-400); RED BLOOD COUNT 4.81 x10^6/uL (4.38-5.82); RED CELL DISTRIBUTION WIDTH 14.4 % (9.4-14.8)
--- NOTE | 2019-09-24 03:40 | NUR ---
PA AT BEDSIDE TO ASSESS PT
[2019-09-24 03:48] LABS: ALANINE AMINOTRANSFERASE 51 U/L (12-78); ALBUMIN 3.3 g/dL (3.4-5.0); ANION GAP 12 mmol/L (5-15); CHLORIDE 103 mmol/L (98-107)
[2019-09-24 03:53] LABS: ALKALINE PHOSPHATASE 59 U/L (45-117); BILIRUBIN,TOTAL 0.5 mg/dL (0.2-1.0); TOTAL PROTEIN 7.2 g/dL (6.4-8.2)
--- NOTE | 2019-09-24 04:15 | NUR ---
PT SHOUTING AT STAFF REQUESTING SLICES OF CHEESE AT THIS TIME, PT INFORMED WE HAVE NO CHEESE. PT BECAME AGGITATED. PT ASKS TO SLEEP HERE WHEN PT PROVIDED WITH BLANKETS PT RESPONDS WITH THATS ALL, I DIDN'T MEAN LITERALLY SLEEP JUST RUB TOES WITH YOU. PT INFORMED INAPPROPRIATE COMMENTS.
--- NOTE | 2019-09-24 04:32 | NUR ---
REPORT RECEIVED FROM HERMAN GREEN. PT RESTING ON GURNEY WITH EYES CLOSED, MONITORING IN [place], CALL LIGHT WITHIN REACH.
[2019-09-24] MEDS ORDERED: POTASSIUM CHLORIDE 20 MEQ TAB.ER.PRT PO ONE (05:00)
[2019-09-24] MEDS ORDERED: POTASSIUM CHLORIDE 20 MEQ TAB.ER.PRT ONE (06:15)
[2019-09-24 06:24] VITALS: BP 131/65
--- NOTE | 2019-09-24 07:09 | NUR ---
sitting up on edge of bed getting dressed. assisted with belt. pt ambulated to discharge window with use of walker, steady gait. [facility]
== END 2019-09-24 07:12 | disposition home or self-care (01) ==
LOC: ED 04:44
DX: F10.220 Alcohol dependence with intoxication, uncomplicated (principal); E87.6 Hypokalemia; Y90.9 Presence of alcohol in blood, level not specified
CPT/HCPCS: 36415; 80053; 80307; 85025; 99283

== ENCOUNTER 2019-09-24 09:32 | Emergency (ER) | payer MEDICARE ==
[~2019-09-24] VITALS: Ht 167.6 cm; Wt 75.0 kg
--- NOTE | 2019-09-24 10:05 | NUR ---
PT ARRIVED BY AMBULANCE WITH A PERSON HE JUST MET IN PARKING LOT OF MEN'S ASSISTED. PT HAD BEEN PROVIDED A VOUCHER FOR SAME FROM THIS ER THIS MORNING. PT HAD BEEN IN ER THROUGH NIGHT BECAUSE HE WAS INTOXICATED AND KICKED OUT OF ASSISTED. PERSON AT BEDSIDE OF PT WHO IS LOUD AND INEBRIATED ACTING. PERSON TALKING PT INTO STAYING IN BED. WILL CONTINUE TO MONITOR
[2019-09-24 10:57] LABS: ANION GAP 9 mmol/L (5-15); CALCIUM 8.1 mg/dL (8.5-10.1); CHLORIDE 106 mmol/L (98-107)
[2019-09-24 10:58] LABS: ALANINE AMINOTRANSFERASE 57 U/L (12-78); ALBUMIN 3.4 g/dL (3.4-5.0)
[2019-09-24 11:00] LABS: ALKALINE PHOSPHATASE 63 U/L (45-117); BILIRUBIN,TOTAL 0.4 mg/dL (0.2-1.0); TOTAL PROTEIN 7.4 g/dL (6.4-8.2)
--- NOTE | 2019-09-24 11:30 | NUR ---
BELIGERENT BUT STAYING IN BED WITH VISTOR AT BEDSIDE.
[2019-09-24 12:13] VITALS: BP 119/82
--- NOTE | 2019-09-24 14:01 | NUR ---
PT AWAKE AND EATING SANDWICH
--- NOTE | 2019-09-24 14:42 | NUR ---
PT ABLE TO WALK WITH USE OF WALKER. DISCHARGED TO [facility] CALLED FOR PT.
== END 2019-09-24 14:44 | disposition home or self-care (01) ==
LOC: ED 09:51
DX: F10.220 Alcohol dependence with intoxication, uncomplicated (principal); I48.91 Unspecified atrial fibrillation; J44.9 Chronic obstructive pulmonary disease, unspecified; F17.200 Nicotine dependence, unspecified, uncomplicated; Y90.9 Presence of alcohol in blood, level not specified
CPT/HCPCS: 36415; 80053; 99283

== ENCOUNTER 2019-10-04 12:19 | Emergency (ER) | payer MEDICARE ==
[~2019-10-04] VITALS: Ht 180.3 cm; Wt 78.0 kg
--- NOTE | 2019-10-04 12:24 | NUR ---
PATIENT ARRIVES WITH MOR FROM [facility]. HE IS SLURRING BADLY, SMELLS OF ETOH. NURSING HOME STATES THEY FOUND TWO BOTTLES WHISKY ON PATIENT. PATIENT ON MONITOR. ORIENTED TO PERSON
--- NOTE | 2019-10-04 12:41 | NUR ---
BREAK RN: SBAR RPT REC'D FROM HERMAN MORLEY. AWAITING ED PROVIDER COLIN. PT ON CARDIAC, BP, SP02 MONITORS. VSS WITH 02 2L NC.
--- NOTE | 2019-10-04 13:26 | NUR ---
CALM AND IN BED. ORDERED DIET TRAY
--- NOTE | 2019-10-04 13:31 | NUR ---
PATIENT METATBOLIZE TO FREEDOM.
--- NOTE | 2019-10-04 15:19 | NUR ---
PATIENT IN BED, HE IS ORIENTED TO SELF AND PLACE TO "HOSPITAL" BUT NOT WHICH ONE. HE IS DISORIENTED TO DATE, SITUATION. IN BED RAILS UP CALM
--- NOTE | 2019-10-04 15:30 | NUR ---
TASK RN: PT ARROUSES TO VERBAL STIM. VERBALIZES NEED TO URINATE. URINAL PLACED. PT VOIDED W/O DIFFICULTY. HOB UP 90DEGREES AND MEAL PROVIDED.
--- NOTE | 2019-10-04 15:58 | NUR ---
PATIENT ATE MOST OF SANDWICH THEN BACK TO SLEEP. WHEN HE FALLS ASLEEP HE DESATS INTO 80'S SO MORE OXYGEN NEEDED - 4 LITERS. WAKES EASILY AND TRYING TO PUT TOGETHER HOW HE GOT HERE, ETC. WAKING UP SOME.
--- NOTE | 2019-10-04 17:21 | NUR ---
patient takes off oxygen frequently and then desat's oxygen. not compliant with oxygen, replaced oxygen x4.
--- NOTE | 2019-10-04 18:07 | NUR ---
SLEEPINGN SOUNDLY. NO S/S DISTRESS. ON MONITOR RAILS UP
--- NOTE | 2019-10-04 18:49 | NUR ---
REPORT RECEIVED FROM HERMAN MORLEY. PLAN OF CARE DISCUSSED.
--- NOTE | 2019-10-04 19:38 | NUR ---
PATIENT AMBULATORY WITH OWN WALKER, VSS ON RA. A&OX4. PATIENT GIVEN TAXI VOUCHER AND CONFIRMS UNDERSTANDING OF DISCHARGE INSTRUCTIONS.
[2019-10-04 19:39] VITALS: BP 125/67
== END 2019-10-04 19:41 | disposition home or self-care (01) ==
LOC: ED 12:39
DX: F10.129 Alcohol abuse with intoxication, unspecified (principal); Y90.9 Presence of alcohol in blood, level not specified; I48.91 Unspecified atrial fibrillation; J44.9 Chronic obstructive pulmonary disease, unspecified
CPT/HCPCS: 71045; 99283

== ENCOUNTER 2019-10-05 23:18 | Emergency (ER) | payer MEDICARE, MEDICAID ==
[~2019-10-05] VITALS: Ht 180.3 cm; Wt 84.9 kg
--- NOTE | 2019-10-05 23:24 | NUR ---
Pt appears grossly intoxicated and unable to ambulate, found on ground and is homeless per report. Reports drinking "a lot of alcohol." Slurring speech, but neuro otherwise intact. Monitoring applied. Vss. WCTM.
--- NOTE | 2019-10-06 01:14 | NUR ---
Pt sleeping comfortably on gurney. Nadn. Rr even and unlabored.
--- NOTE | 2019-10-06 02:31 | NUR ---
Pt sleeping comfortably on gurney. Nadn. Rr even and unlabored.
--- NOTE | 2019-10-06 02:53 | NUR ---
Pt sleeping comfortably on gurney. Nadn. Rr even and unlabored.
[2019-10-06 02:59] VITALS: BP 128/76
== END 2019-10-06 04:49 | disposition home or self-care (01) ==
LOC: ED 10-06 04:30
DX: F10.220 Alcohol dependence with intoxication, uncomplicated (principal); Y90.9 Presence of alcohol in blood, level not specified; J44.9 Chronic obstructive pulmonary disease, unspecified
CPT/HCPCS: 99283

== ENCOUNTER 2019-10-31 08:17 | Emergency (ER) | payer MEDICARE, MEDICAID ==
[~2019-10-31] VITALS: Ht 180.3 cm; Wt 80.0 kg
--- NOTE | 2019-10-31 08:30 | NUR ---
THIS IS A 69 YO MALE BIB [facility] FOR ACUTE ETOH INTOXICATION, PATIENT WAS FOUND BY [facility] UNABLE TO AMBULATE. PATIENT ALERT, ORIENTED TO SELF, KNOWS , UNAWARE OF LOCATION OR EVENTS LEADING TO COMING TO ER. PERRLA, MOVES ALL EXTREMITIES WELL, UNABLE TO ASSESS WALKING AT THIS TIME, PATIENT DROWSY. ALL MONITORING IN PLACE, NSR ON MONITOR. VSS, NAD, CALL LIGHT IN REACH.
--- NOTE | 2019-10-31 09:33 | NUR ---
PATIENT SLEEPING, RESPIRATIONS EVEN AND UNLABORED. VSS. ALL MONITORING IN PLACE
[2019-10-31] MEDS ORDERED: ACETAMINOPHEN 500 MG TABLET ONE (10:01)
--- NOTE | 2019-10-31 10:30 | NUR ---
PATIENT SLEEPING, RESPIRATIONS EVEN AND UNLABORED. VSS. ALL MONITORING IN PLACE
--- NOTE | 2019-10-31 11:33 | NUR ---
ATTEMPTED TO WAKE PATIENT, PATIENT AROUSES TO VERBAL STIMULI, SPEECH SLURRED, A&OX2. VSS. ALL MONITORING IN PLACE. PATIENT BACK TO SLEEP
[2019-10-31 12:18] VITALS: BP 110/74
--- NOTE | 2019-10-31 12:24 | NUR ---
PATIENT ASKING FOR WATER, SPEECH IS MODERATELY MORE CLEAR, GIVEN WATER, REFUSES TO ATTEMPT TO WALK AT THIS TIME
--- NOTE | 2019-10-31 13:47 | NUR ---
PATIENT AMBULATORY WITH STEADY GAIT TO DISCHARGE. VERBALIZED D/C INSTRUCTIONS AND COMMUNICATED UNDERSTANDING. VSS, NAD, PROVIDED WITH TAXI VOUCHER
== END 2019-10-31 13:50 | disposition home or self-care (01) ==
LOC: ED 08:53
DX: F10.220 Alcohol dependence with intoxication, uncomplicated (principal); J44.9 Chronic obstructive pulmonary disease, unspecified; Z85.118 Personal history of other malignant neoplasm of bronchus and lung; Y90.9 Presence of alcohol in blood, level not specified
CPT/HCPCS: 99285

== ENCOUNTER 2019-11-06 14:43 | Emergency (ER) | payer MEDICARE, MEDICAID ==
[~2019-11-06] VITALS: Ht 177.8 cm; Wt 75.0 kg
[2019-11-06] MEDS ORDERED: CEFAZOLIN 1,000 MG IM ONE (15:00)
--- NOTE | 2019-11-06 15:00 | NUR ---
PT LANA AFTER ASKING PASSERBY TO CALL 911 FOR HIM. PT IS POOR HISTORIAN AND SAYS HE DOESN'T KNOW WHY HE IS HERE. +ETOH. PER EMS, PT WAS SITTING AGAINST A BUILDING WITH MULTIPLE DC PAPERS FROM VARIOUS RECENT VISITS AT [facility]. PT CONNECTED TO ALL MONITORS. VSS. EDMD SAHM TO BS FOR ASSESSMENT. ORDERS RECEIVED.
[2019-11-06] MEDS ORDERED: CEFAZOLIN 1,000 MG ONE (15:06)
--- NOTE | 2019-11-06 15:14 | NUR ---
PT MEDICATED PER MAR.
[2019-11-06 15:15] LABS: BASOPHILS # (AUTO) 0.04 x10^3/uL (0-0.1); BASOPHILS % (AUTO) 1 % (0-1); EOSINOPHILS # (AUTO) 0.06 x10^3/uL (0-0.4); EOSINOPHILS % (AUTO) 1 % (1-7); LYMPHOCYTES % (AUTO) 23 % (22-44); MD NO; MEAN CORPUSCULAR HEMOGLOBIN 31.9 pg (27.5-34.5); MEAN CORPUSCULAR HGB CONC 33.4 g/dL (33.2-36.2); MEAN CORPUSCULAR VOLUME 95.6 fL (81-97); MEAN PLATELET VOLUME 7.4 fL (7.4-10.4); MONOCYTES # (AUTO) 0.65 x10^3/uL (0.2-0.8); MONOCYTES % (AUTO) 8 % (2-9); NEUTROPHILS # (AUTO) 5.47 x10^3/uL (1.8-6.8); NEUTROPHILS % (AUTO) 68 % (42-75); PLATELET COUNT 234 x10^3/uL (130-400); RED BLOOD COUNT 4.75 x10^6/uL (4.38-5.82); RED CELL DISTRIBUTION WIDTH 14.6 % (9.4-14.8)
[2019-11-06 15:26] LABS: ALANINE AMINOTRANSFERASE 30 U/L (12-78); ANION GAP 7 mmol/L (5-15); CALCIUM 8.2 mg/dL (8.5-10.1); CHLORIDE 109 mmol/L (98-107); CREATININE 0.52 mg/dL (0.7-1.3)
[2019-11-06 15:28] LABS: ALKALINE PHOSPHATASE 57 U/L (45-117); BILIRUBIN,TOTAL 0.1 mg/dL (0.2-1.0); TOTAL PROTEIN 6.9 g/dL (6.4-8.2)
[2019-11-06] MEDS ORDERED: POTASSIUM CHLORIDE 20 MEQ TAB.ER.PRT ONE (15:57)
[2019-11-06] MEDS ORDERED: POTASSIUM CHLORIDE 20 MEQ TAB.ER.PRT PO ONE (16:00)
[2019-11-06] MEDS ORDERED: NS + 40MEQ KCL 1,000 ML IV SCH (16:00)
--- NOTE | 2019-11-06 16:04 | NUR ---
PT MEDICATED PER MAR WITH HELP OF EDTA X2. RKG BEING OBTAINED NOW.
--- NOTE | 2019-11-06 18:19 | NUR ---
PT RESTING IN ROOM.VSS. NO NEEDS EXPRESSED. PT VERY DROWSY AT THIS TIME.
--- NOTE | 2019-11-06 19:05 | NUR ---
REPORT TO HERMAN JEAN-BAPTISTE.
--- NOTE | 2019-11-06 19:05 | NUR ---
Received report and assumed patient care. Patient resting in bed. Awaiting disposition
[2019-11-06 19:38] VITALS: BP 109/49
== END 2019-11-06 22:30 | disposition home or self-care (01) ==
LOC: ED 15:04
DX: F10.221 Alcohol dependence with intoxication delirium (principal); L03.211 Cellulitis of face; R94.31 Abnormal electrocardiogram [ECG] [EKG]; J44.9 Chronic obstructive pulmonary disease, unspecified; I48.91 Unspecified atrial fibrillation; Y90.0 Blood alcohol level of less than 20 mg/100 ml
CPT/HCPCS: 36415; 80053; 80307; 85025; 93005; 96372; 99284; J0690

== ENCOUNTER 2019-11-09 18:45 | Emergency (ER) | payer MEDICARE, MEDICAID ==
[~2019-11-09] VITALS: Ht 182.9 cm; Wt 75.0 kg
[2019-11-09 18:58] VITALS: BP 123/78
--- NOTE | 2019-11-09 19:43 | NUR ---
PT STOOD UP AND STATED HE WANTED A CAB BACK TO THE SN[facility], DENIED ANY MEDICAL COMPLAINT, AMBULATED WELL WITH PERSONAL WALKER, TAXI VOUCHER GIVEN
== END 2019-11-09 19:47 | disposition left against medical advice (07) ==
LOC: ED 19:41
DX: F10.229 Alcohol dependence with intoxication, unspecified (principal); Y90.9 Presence of alcohol in blood, level not specified; J43.9 Emphysema, unspecified; I48.91 Unspecified atrial fibrillation; F17.210 Nicotine dependence, cigarettes, uncomplicated; Z85.118 Personal history of other malignant neoplasm of bronchus and lung
CPT/HCPCS: 99283

== ENCOUNTER 2019-11-11 21:42 | Emergency (ER) | payer MEDICARE, MEDICAID ==
--- NOTE | 2019-11-11 21:50 | NUR ---
THIS IS A 69Y M WELL KNOWN TO ED, PT PRESENTS INTOXICATED AND AGGITATED. REFUSING VITALS AT THIS TIME. PT PLACED IN WHEEL CHAIR IN SIGHT OF NURSES STATION FOR FREQUENT MONITORING.
--- NOTE | 2019-11-11 21:58 | NUR ---
PT SITTING IN WHEELCHAIR QUIETLY
--- NOTE | 2019-11-11 22:57 | NUR ---
PT CONTINUES TO SIT IN WHEELCHAIR WITHOUT DISTURBANCE OR COMPLAINT AT THIS TIME.
--- NOTE | 2019-11-11 23:36 | NUR ---
PT REMAINS IN WHEELCHAIR IN SIGHT OF NURSING STAFF AT THIS TIME. PT RESP EVEN AND UNLABORED PT RESTING WITH EYES CLOSED AND EXPRESSES NO NEEDS.
--- NOTE | 2019-11-12 02:27 | NUR ---
BREAK RN: PT SLEEPING IN WHEELCHAIR. CHEST RISE AND FALL OBSERVED.
--- NOTE | 2019-11-12 04:19 | NUR ---
PT STILL SLEEPING IN WHEELCHAIR AT THIS TIME. REPORT TO YOSHI SUTTON
== END 2019-11-12 04:53 | disposition home or self-care (01) ==
LOC: ED 21:47
DX: F10.220 Alcohol dependence with intoxication, uncomplicated (principal); F17.200 Nicotine dependence, unspecified, uncomplicated; Z72.9 Problem related to lifestyle, unspecified; J44.9 Chronic obstructive pulmonary disease, unspecified; I48.91 Unspecified atrial fibrillation; Z85.118 Personal history of other malignant neoplasm of bronchus and lung; Y90.9 Presence of alcohol in blood, level not specified
CPT/HCPCS: 99283

== ENCOUNTER 2019-11-13 21:11 | Emergency (ER) | payer MEDICARE, MEDICAID ==
[~2019-11-13] VITALS: Ht 177.8 cm; Wt 85.0 kg
[2019-11-13 22:23] VITALS: BP 98/72
--- NOTE | 2019-11-13 22:23 | NUR ---
SLEEPING IN NO ACUTE DISTRESS, RESPIRATIONS EVEN AND UNLABORED. VSS.
--- NOTE | 2019-11-13 23:00 | NUR ---
EMT ATTEMPTED TO HELP GET PT OUT OF BED FOR ABMULATION, PT REFUSING AT THIS TIME.
--- NOTE | 2019-11-14 00:32 | NUR ---
TASK RN: PT AMBULATORY WITH SECURITY TO [facility]. TAXI VOUCHER PROVIDED TO [facility].
== END 2019-11-14 00:37 | disposition home or self-care (01) ==
LOC: ED 21:30
DX: F10.220 Alcohol dependence with intoxication, uncomplicated (principal); Y90.9 Presence of alcohol in blood, level not specified; J44.9 Chronic obstructive pulmonary disease, unspecified; I48.91 Unspecified atrial fibrillation; Z72.9 Problem related to lifestyle, unspecified
CPT/HCPCS: 99283

== ENCOUNTER 2019-11-17 18:38 | Emergency (ER) | payer MEDICARE, MEDICAID ==
[~2019-11-17] VITALS: Ht 175.3 cm; Wt 100.0 kg
[2019-11-17 18:44] VITALS: BP 138/83
--- NOTE | 2019-11-17 18:45 | NUR ---
bib ems for etoh. ekg done. vss. denies cough, fever, sob. at [facility]
--- NOTE | 2019-11-17 21:34 | NUR ---
PT ESCORTED OUT AND GIVEN A TAXI VOUCHER. PT AMBULATED OUT WITH A STEADY GATE.
== END 2019-11-17 21:37 ==
LOC: ED 19:06
DX: F10.120 Alcohol abuse with intoxication, uncomplicated (principal); R94.31 Abnormal electrocardiogram [ECG] [EKG]; J44.9 Chronic obstructive pulmonary disease, unspecified; I48.91 Unspecified atrial fibrillation; I25.2 Old myocardial infarction; I51.7 Cardiomegaly; Z72.9 Problem related to lifestyle, unspecified; Z85.118 Personal history of other malignant neoplasm of bronchus and lung; Y90.0 Blood alcohol level of less than 20 mg/100 ml
CPT/HCPCS: 93005; 99283